=== PATIENT | male | born 1960 | race Caucasian/White ===

== ENCOUNTER 2025-01-19 07:02 | Emergency (ER) | payer OTHER, SELFPAY ==
--- NOTE | ~2025-01-19 | CT_ITS ---
EXAMINATION: CT brain wo con DATE: 01/19/2025 07:24 INDICATION: Fall. TECHNIQUE: Computed tomography (CT) of the head was performed without intravenous contrast. The mA was adjusted according to patient size. Iterative reconstruction technique was employed. The dose-length product was 681.00 mGy-cm. COMPARISON: None FINDINGS: There is a hyperdense left frontoparietal subdural hematoma with maximum thickness of 4 mm. There is hyperdense subarachnoid hemorrhage in sulci in the left frontal and temporal lobes and left sylvian fissure. There is a right frontal subdural hematoma with maximum thickness of 3 mm that is mixed hyperdense and hypodense. There is hyperdense subarachnoid hemorrhage in a sulcus in right temporal lobe. There are changes of suboccipital craniectomy. There is encephalomalacia in the cerebellum at the midline. There is an infarct in left parietal lobe. There is no abnormal mass lesion. The ventricles are small. There is a right-sided ventriculostomy catheter with tip in body of left lateral ventricle. There is mild mucosal thickening in the paranasal sinuses. The orbits are normal. The mastoid air cells are normal. IMPRESSION: 1. Acute bilateral subarachnoid hemorrhage and subdural hematomas. I called this result to Dr. Andrade. 2. 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 3. Chronic encephalomalacia in cerebellum. 4. Small ventricles with shunt catheter in expected position. Reviewed, dictated and finalized at location E. ESPONDENCE REVIEW CLERK IMPRESSION: 1. Acute bilateral subarachnoid hemorrhage and subdural hematomas. I called thi s result to Dr. Andrade. 2. 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 3. Chronic encephalomalacia in cerebellum. 4. Small ventricles with shunt catheter in expected position.
[2025-01-19 07:03] VITALS: BP 139/101; PULSE 99; RESP 16; TEMP 36.8; O2SAT 98
--- NOTE | 2025-01-19 07:14 | ED.HEATRA ---
HPI - Head Injury General Chief complaint: Head Injury Stated complaint: dizzy Time Seen by Provider: 01/19/25 07:08 Source: patient Mode of arrival: ambulatory Limitations: no limitations History of Present Illness HPI Narrative: 64-year-old with a history of hypertension, diabetes, hypercholesteremia here with the complaints of dizziness associated with nausea. Patient states that he fell twice yesterday on ice no LOC woke up this morning feeling dizzy. he is not on any anticoagulant. Complaint: head injury Onset (ago): day(s) (1) Mechanism of Injury: fall Place: home Loss of Consciousness: no Location of injury: occipital Severity: moderate Radiation: none Other Injuries: none Associated symptoms: nausea and vomiting Related Data Allergies Allergy/AdvReac Type Severity Reaction Status Date / Time codeine AdvReac Severe Headache Verified 01/19/25 07:07 Review of Systems Review of Systems: All systems reviewed & are unremarkable except as noted in HPI and below Constitutional: Constitutional: Reports no additional constitutional complaints Eyes: Eyes: Reports no additional eye complaints ENT: Reports system reviewed and no additional complaints, except as documented Cardiovascular: Cardiovascular: Reports no additional cardiovascular complaints Gastrointestinal: Gastrointestinal: Reports as per HPI Musculoskeletal: Musculoskeletal: Reports no additional musculoskeletal complaints Neurologic: Reports system reviewed and no additional complaints, except as documented [facility] Past Medical History Medical History H/O: HTN (hypertension) Diabetes Family History Family History Other Depression Diabetes mellitus Hypertension Exam Narrative: GENERAL: Well-appearing, well-nourished, and in no acute distress. HEAD: Normocephalic, atraumatic. EYES: PERRLA and EOMI. ENT: Nares clear, no rhinorrhea or epistaxis. Mucous membranes moist. NECK: Supple. CHEST: Clear to auscultation. No respiratory distress. HEART: Regular rate and rhythm. No murmur heard. Normal peripheral pulses. ABDOMEN: Soft, nontender, nondistended, normal active bowel sounds. EXTREMITIES: Normal range of motion. No edema. SKIN: Warm, dry, no rash. NEURO: No focal deficits. Alert and oriented x3. PSYCH: Normal mood and affect. Course Course Emergency Course: Was notified by the radiologist that he has bilateral subdural and subarachnoid hemorrhages. Notified patient agreeable with transfer to [place] . Discussed with Dr. Cortés Trauma Surgery will accept the pt in transfer. Vital Signs Vital signs: Vital Signs Temperature 36.8 C 01/19/25 07:03 Pulse Rate 99 01/19/25 07:03 Respiratory Rate 16 01/19/25 07:03 Blood Pressure 139/101 H 01/19/25 07:03 Pulse Oximetry 98 01/19/25 07:03 Oxygen Delivery Room Air 01/19/25 07:03 Temperature 36.8 C 01/19/25 07:03 Pulse Rate 99 01/19/25 07:03 Respiratory Rate 16 01/19/25 07:03 Blood Pressure 139/101 H 01/19/25 07:03 Pulse Oximetry 98 01/19/25 07:03 Oxygen Delivery Room Air 01/19/25 07:03 MDM MDM Narrative Medical decision making narrative: 64-year-old with history of hypertension, hyperlipidemia, diabetes here with the complaints of fall yesterday exam is unremarkable. obtain the CT of the head to rule out bleed. Differential Diagnosis Differential Diagnosis: Skull fracture, head trauma, intracranial bleed, concussion Imaging Data Radiologist's impression: ITS Impressions Head CT 01/19/25 07:50 IMPRESSION: 1. Acute bilateral subarachnoid hemorrhage and subdural hematomas. I called this result to Dr. Andrade. 2. 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 3. Chronic encephalomalacia in cerebellum. 4. Small ventricles with shunt catheter in expected position. Discharge Plan Discharge Clinical Impression: Subarachnoid hematoma, Subdural hematoma Patient Disposition: Acute Care Hospital Condition: Stable Patient Language: Lao Follow-up/Referrals: UNKNOWN,DOCTOR [Non-Staff] Time of Disposition: 08:17
[2025-01-19] MEDS: ONDANSETRON HCL ODT 4 MG TABLET PO (07:29)
[2025-01-19 07:30] VITALS: BP 113/94; PULSE 90; RESP 17; O2SAT 97
--- OUTSIDE RECORDS SUMMARY | 2025-01-19 07:52 | XMS_ITS | Encounter Summary ---
Author Organization [facility] - [facility] Address [address] [place] [address] Care Team Providers Care Analog Design Engineer Name Role Phone Jairo Jordan MD Primary Care Provider Encounter Details Date Type Department Care Team (Late st Contact Info) Description 07/24/2021 [employer] Message [facility] Patient Accounts [address] [place] [address] [facility] Provider Auto Pay Payment Plan Social History Tobacco Use Types Packs/Day Years Used Date Smoking Tobacco: Former Cigarettes 1 20 1 99 - 2009 Smokeless Tobacco: Never Alcohol Use Standard Drinks/Week Comments Yes 1.7 (1 standard drink = 0.6 oz p ure alcohol) Sex and Gender Information Value Date Recorded Sex Assigned at Not on file 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
--- OUTSIDE RECORDS SUMMARY | 2025-01-19 07:52 | XMS_ITS | Clinical Summary ---
Author Organization [facility] Address [address] [place] [id number] Care Team Providers Care Animal Tech Name Role Phone Jairo Jordan MD Primary Care Provider Allergies Active Allergy Reactions Criticality Noted Date Comments Codeine Headache 09/24/2014 Medications glimepiride (AMARYL) 4 MG tablet Take 2 tablets by mouth daily. Active lisinopril 20 MG tablet Take 1 tablet by mouth daily. Active metFORMIN ER 500 MG 24 hr tablet Take 2 tablets by mouth 2 (two) times daily. Active simvastatin (ZOCOR) 20 MG tablet Take 1 tablet by mouth daily. Active semaglutide (OZEMPIC, 1 MG/DOSE,) 2 MG/1.5ML injection (PEN) Inject 1 mg into the skin every 7 days. Active meloxicam 15 MG tabletIndications: Impingement syndrome, shoulder, left,Left bicipital tenosynovitis Take 1 tablet (15 mg total) by mouth daily. 30 tablet 2 2 Active Active Problems Problem Noted Date Diagnosed Date Impingement syndrome, shoulder, left 03/17/2021 Left bicipital tenosynovitis 03/17/2021 Family History Medical History Relation Comments Diabetes Mother Hypertension Mother Relation Status Comments Father Other Mother Sister 1 Alive Sister 2 Alive Social History Tobacco Use Types Packs/Day Years Used Date Smoking Tobacco: Former Cigarettes 1 20 1 - 2009 Smokeless Tobacco: Never Alcohol Use Standard Drinks/Week Comments Yes 1.7 (1 standard drink = 0.6 oz p ure alcohol) Sex and Gender Information Value Date Recorded Sex Assigned at Not on file 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 Gender Identity Not on file Sexual Orientation Not on file Last Filed Vital Signs Vital Sign Reading Time Taken Comments Blood Pressure 110/62 10/15/2014 10:27 AM CDT Pulse 88 10/15/2014 10:27 AM CDT Temperature - - Respiratory Rate - - Oxygen Saturation - - Inhaled Oxygen Concentration - - Weight 101.6 kg (224 lb) 03/31/2021 11:35 AM ART MUSEUM AIDE Height 175.3 cm (5' 9) 03/31/2021 11:35 AM ART MUSEUM AIDE Body Mass Index 33.08 03/31/2021 11:35 AM ART MUSEUM AIDE Plan of Treatment Health Maintenance Due Date Last Done Comments Colorectal Cancer Screening Colonoscopy (10 Years) 1960 Annual Physical 11/10/1963 Hepatitis C 1978 DTaP, Tdap and Td Vaccines ( 1 - Tdap) 11/10/1979 Pneumococcal Vaccine: 50+ Ye ars (1 of 1 - PCV) 2010 Zoster Vaccines (1 of 2) 2010 COVID-19 Vaccine (1 - 2024-2 6 season) 2024 Influenza Adult (#1) 2024 RSV Immunization or 60+ Years (1 - 1-dose 75+ series) 11/10/2035 Hepatitis A Vaccines Aged Out No long er eligible based on patient's age to complete this topic Meningococcal B Vaccine Aged Out No l onger eligible based on patient's age to complete this topic Meningococcal Vaccine Aged Out No vicky carlos eligible based on patient's age to complete this topic RSV Immunizations Under 20 Months Aged Out No longer eligible based on patient's age to complete this topic Insurance Care Teams Animal Tech Relationship Specialty Start Date End Date Jairo Jordan MD [address] [place] [phone] PCP - General FAMILY PRACTICE 02/25/21
--- OUTSIDE RECORDS SUMMARY | 2025-01-19 07:52 | XMS_ITS | Clinical Summary ---
Author Organization [facility] Address [address] [place] [address] Phone Care Team Providers Care Compensation And Benefits Administrator Name Role Phone Provider, None Primary Care Provider Unavailabl e Allergies Active Allergy Reactions Criticality Noted Date Comments Codeine Other (see Comments) 08/13/2022 Gives bad headaches Medications SIMVASTATIN PO Take 1 Tablet by mouth. Active SITAGLIPTIN-METF ORMIN HCL PO Take 1 Tablet by mouth. 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 Gender Identity Not on file Sexual Orientation Not on file Last Filed Vital Signs Vital Sign Reading Time Taken Comments Blood Pressure 120/77 08/13/2022 9:32 AM CDT Pulse 98 08/13/2022 9:32 AM CDT Temperature 37.7 C (99.8 F) 08/13/2022 9:32 AM CDT Respiratory Rate 18 08/13/2022 9:32 AM CDT Oxygen Saturation 97% 08/13/2022 9:32 AM CDT Inhaled Oxygen Concentration - - Weight 83.9 kg (185 lb) 08/13/2022 9:32 AM CDT Height 175.3 cm (5' 9) 08/13/2022 9:32 AM CDT Body Mass Index 27.32 08/13/2022 9:32 AM CDT Plan of Treatment Health Maintenance Due Date Last Done Comments Hepatitis C Virus (HCV) Screening 1960 TdaP Immunization 1960 Cologuard 2005 Colonoscopy 2005 Colorectal Cancer Screening 2005 Immunochemical Fecal Occult Blood 2005 Pneumococcal Immunization (5 0+ years) (1 of 1 - PCV) 2010 Zoster Immunization (1 of 2) 2010 Influenza Immunization (#1) 2024 SARS-COV-2 Immunization (1 - 2024- season) 2024 Respiratory Syncytial Virus (RSV) Immunization (Adult) (1 - 1-dose 75+ series) 11/10/2035 Hepatitis B Immunization Aged Out No longer eligible based on patient's age to complete this topic Human Papillomavirus (HPV) Immunization Aged Out No longer eligible b ased on patient's age to complete this topic Meningococcal Immunization (ACWY) Aged Out No longer eligible based on patient's age to complete this topic Rotavirus Immunization Aged Out No lo nger eligible based on patient's age to complete this topic Insurance Care Teams Compensation And Benefits Administrator Relationship Specialty Start Date End Date Provider, None [place] PCP - General 08/14/22
--- OUTSIDE RECORDS SUMMARY | 2025-01-19 07:52 | XMS_ITS | Encounter Summary ---
Author Organization [facility] - [facility] Address [address] [place] [address] Care Team Providers Care Piece Dyer Name Role Phone Jairo Jordan MD Primary Care Provider Encounter Details Date Type Department Care Team (Late st Contact Info) Description 04/06/2024 [employer] Message [facility] Patient Accounts [address] [place] [address] [facility] Payment [facility] - auto pay Social History Tobacco Use Types Packs/Day Years Used Date Smoking Tobacco: Former Cigarettes 1 20 1 - 2009 Smokeless Tobacco: Never Alcohol Use Standard Drinks/Week Comments Yes 1.7 (1 standard drink = 0.6 oz p ure alcohol) Sex and Gender Information Value Date Recorded Sex Assigned at Not on file 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
--- OUTSIDE RECORDS SUMMARY | 2025-01-19 07:52 | XMS_ITS | Encounter Summary ---
Author Organization [facility] Address [address] [place] [id number] Care Team Providers Care Military Administrative Technician Name Role Phone Jairo Jordan MD Primary Care Provider Encounter Details Date Type Department Care Team (Late st Contact Info) Description 03/17/2021 [employer] Message [facility] [place] [address] Buzz Lamar MD [address] [place] [address] Visit Follow Up Social History Tobacco Use Types Packs/Day Years Used Date Smoking Tobacco: Former Cigarettes 1 20 1 0 - 2009 Smokeless Tobacco: Never Alcohol Use Standard Drinks/Week Comments Yes 1.7 (1 standard drink = 0.6 oz p ure alcohol) Sex and Gender Information Value Date Recorded Sex Assigned at Not on file 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 No / Unsure 03/16/2021 12:12 PM NAILING MACHINE OPERATOR AUTOMATIC documented as of this encounter Plan of Treatment Not on file documented as of this encounter Visit Diagnoses Not on filedocumented in this encounter Care Teams Military Administrative Technician Relationship Specialty Start Date End Date Jairo Jordan MD [address] [place] [phone] PCP - General FAMILY PRACTICE 02/25/21 documented as of this encounter
--- OUTSIDE RECORDS SUMMARY | 2025-01-19 07:52 | XMS_ITS | Clinical Summary ---
Author Organization [facility] Address [address] [place] [address] Care Team Providers Care Partner Marketing Intern Name Role Phone Unavailable Primary Care Provider Unavailabl e Social History Tobacco Use Types Packs/Day Years Used Date Smoking Tobacco: Never Assessed Sex and Gender Information Value Date Recorded Sex Assigned at Not on file Legal Sex Male 9:26 AM PUBLICATION DISTRIBUTOR Gender Identity Not on file Sexual Orientation Not on file Plan of Treatment Health Maintenance Due Date Last Done Comments DTAP/TDAP/TD VACCINES (1 - Tdap) 11/10/1979 COLORECTAL SCREENING 2005 Colorectal Cancer Screening 2005 FIT-DNA Q 3 years 2005 FIT/FOBT Q 1 year 2005 Flex Sig/CT Colonography Q 5 years 2005 ZOSTER VACCINE (1 of 2) 2010 INFLUENZA VACCINE (#1) 2024 RSV VACCINE (60+ or ) (1 - 1-dose 75+ series) 11/10/2035 Insurance [facility]
[2025-01-19 08:00] VITALS: BP 128/88; PULSE 93; RESP 16; O2SAT 96
--- NOTE | 2025-01-19 08:13 | PC.NURSE ---
Patient requesting [facility] for transfer
[2025-01-19 08:27] VITALS: BP 128/88; PULSE 93; RESP 16; TEMP 36.8; O2SAT 96
[2025-01-19 08:28] LABS: Hematocrit 41.4 % (40.0-54.0); Hemoglobin 13.6 g/dL (14.0-18.0); Immature Granulocyte Percent A 0.5 % (0.0-0.0); Lymphocytes Absolute Auto 1.82 K/mm3 (1.10-4.50); Mean Corpuscular HGB Conc 32.9 g/dL (32-36); Mean Corpuscular Hemoglobin 27.9 pg (27.0-31.0); Mean Corpuscular Volume 84.8 fL (78.0-102.0); Nucleated Red Blood Cells Absolute Auto 0.00 K/mm3 (0.00-0.00); Nucleated Red Blood Cells Perc 0.0 % (0-0.0); Platelet Count Result 188 K/mm3 (150-420); Red Blood Count 4.88 M/mm3 (4.70-6.10); White Blood Count 11.7 K/mm3 (4.8-10.8)
[2025-01-19 08:45] LABS: INR 1.0; Prothrombin Time 11.4 Seconds (9.50-12.1)
[2025-01-19 08:57] LABS: Alanine Aminotransferase 44 U/L (6-50); Albumin Level 4.6 g/dL (3.5-5.1); Alkaline Phosphatase 105 U/L (38-126); Anion Gap 10 mmol/L (4-12); Aspartate Amino Transferase 33 U/L (17-59); Bilirubin,Total 0.4 mg/dL (0.2-1.3); Blood Urea Nitrogen 20 mg/dL (9-20); Calcium 9.4 mg/dL (8.4-10.2); Carbon Dioxide 28 mmol/L (22-30); Chloride 106 mmol/L (98-107); Estimated CRCL calculation 70 ml/min; Estimated Glomerular Filt Rate > 60; Glucose 204 mg/dL (65-110); Osmolality Calculated 306 mOsm/kg (285-295); Potassium 4.1 mmol/L (3.4-5.0); Sodium 144 mmol/L (137-145); Total Protein 7.3 g/dL (6.3-8.2)
== END 2025-01-19 08:27 | disposition short-term general hospital (02) ==
PROVIDERS: Emergency Provider Family Medicine; PCP Family Medicine
DX: S06.5XAA Traumatic subdural hemorrhage with loss of consciousness status unknown, initial encounter (principal); S06.6XAA Traumatic subarachnoid hemorrhage with loss of consciousness status unknown, initial encounter; I10 Essential (primary) hypertension; E11.9 Type 2 diabetes mellitus without complications; W00.0XXA Fall on same level due to ice and snow, initial encounter
CPT/HCPCS: 36415; 70450; 80053; 85025; 85610; 99285; A9270; L0150